=== PATIENT | female | born 2000 | race Caucasian/White ===

== ENCOUNTER 2020-01-09 13:39 | Emergency (ER) | payer OTHER, SELFPAY ==
--- NOTE | ~2020-01-09 | CT_ITS ---
EXAMINATION: CT abdomen pelvis w con DATE: 01/09/2020 14:46 INDICATION: Right lower quadrant abdominal pain TECHNIQUE: Computed tomography (CT) of the abdomen and pelvis was performed with 100 mL Omnipaque-350 intravenous contrast. Automated exposure control and iterative reconstruction technique were employe d. The dose-length product was 297.13 mGy-cm. COMPARISON: None FINDINGS: Lung bases are clear. Heart size is normal. No pericardial or pleural effusion. Liver, gallbladder, s pleen, pancreas, bilateral adrenal glands and kidneys are normal. No abnormal bowel wall thickening o r obstruction. Appendix is normal. Bladder, anteverted uterus and bilateral adnexa are unremarkable. Small amount of likely physiologic free fluid in the cul-de-sac. No free intraperitoneal gas. No path ologically enlarged abdominal or pelvic lymphadenopathy. Mild lumbar dextroscoliosis. Postoperative c hange of prior left acetabular labral repair. IMPRESSION: 1. Small amount of likely physiologic free fluid in the pelvis. No other acute intra-abdominal/pelvic process. Specifically the appendix is normal. Reviewed, dictated and finalized at location A.
--- NOTE | ~2020-01-09 | US_ITS ---
EXAMINATION: US pelvic complete w TV DATE: 01/09/2020 16:18 INDICATION: Right lower quadrant abdominal pain. TECHNIQUE: Multiple transabdominal and endovaginal sonographic images of the pelvis were obtained. COMPARISON: None. FINDINGS: The anteverted uterus measures 6.9 x 3.0 x 4.3 cm. The endometrial complex measures 3 mm in thicknes s exclusive of a small amount of fluid measuring up to 2 mm in maximal thickness within the endometri al canal at the uterine fundus. The right ovary measures 3.0 x 2.1 x 2.7 cm. The left ovary measures 2.7 x 1.3 x 2.5 cm. There are few 5 mm or smaller hypoechoic lesions in both ovaries consistent with follicles. There is normal vascular flow in the ovaries. There is a small amount of likely physiologi c free fluid in the pelvis. IMPRESSION: 1. Small amount of likely physiologic free fluid in the pelvis and minimal fluid within the endometri al canal likely related to reported recent menstrual period. Reviewed, dictated and finalized at location A. IMPRESSION: 1. Small amount of likely physiologic free fluid in the pelvis and minimal flui d within the endometrial canal likely related to reported recent menstrual mauricio od.
[2020-01-09 13:57] VITALS: BP 102/74; PULSE 83; RESP 20; TEMP 36.7; O2SAT 100
[2020-01-09] MEDS: SODIUM CHLORIDE 0.9% IV 1,000 ML 999 ML IV CONT (14:38)
[2020-01-09] MEDS: FAMOTIDINE 20 MG/2 ML VIAL IV PUSH (14:38)
[2020-01-09 14:46] LABS: Basophils Percent Auto 0.6 % (0.2-1.2); Eosinophils Absolute Auto 0.1 K/mm3 (0-0.3); Eosinophils Percent Auto 1.7 % (0-4.4); Hematocrit 39.2 % (37.0-47.0); Hemoglobin 12.9 g/dL (12.0-15.0); Immature Granulocyte Absolute 0.02 K/mm3 (0.00-0.031); Immature Granulocyte Percent A 0.3 % (0-0.5); Lymphocytes Absolute Auto 3.11 K/mm3 (0.9-3.2); Lymphocytes Percent Auto 43.4 % (18.3-44.2); Mean Corpuscular HGB Conc 32.9 g/dl (32-36); Mean Corpuscular Hemoglobin 28.4 pg (26-34); Mean Corpuscular Volume 86.2 fl (80-100); Monocytes Absolute Auto 0.4 K/mm3 (0.1-0.6); Monocytes Percent Auto 4.9 % (2.6-8.5); Neutrophils Absolute Auto 3.5 K/mm3 (1.3-6.7); Neutrophils Percent Auto 49.1 % (45.5-73.1); Platelet Count Result 298 k/mm3 (150-375); Red Blood Count 4.55 M/mm3 (4.2-5.4); Red Cell Distribution Width 13.5 % (11.5-14.5); White Blood Count 7.2 K/mm3 (4.5-10.0)
[2020-01-09 14:48] LABS: Estimated CRCL calculation 147 ml/min; Estimated Glomerular Filt Rate > 60
--- NOTE | 2020-01-09 14:54 | ED.ABDPAIN ---
HPI - Abdominal Pain General Chief Complaint: Abdominal Pain <Juan Antonio Bejarano PA-C - Last Filed: 01/09/20 17:17> Stated Complaint: RLQ pain <CAROLYN Mattson Last Filed: 01/09/20 17:17> Time Seen by Provider: 01/09/20 13:59 <Juan Antonio Bejarano PA-C - Last Filed: 01/09/20 17:17> Source: patient <CAROLYN Mattson Last Filed: 01/09/20 17:17> Mode of arrival: ambulatory <CAROLYN Mattson Last Filed: 01/09/20 17:17> Limitations: no limitations <Juan Antonio Bejarano PA-C - Last Filed: 01/09/20 17:17> History of Present Illness HPI narrative: Patient is a 19-year-old female who presents with acute onset of right sided abdominal pain that began this morning is a severe stabbing pain attempted to take Tylenol but had no improvement also had results in emesis patient denies rectal bleeding melena diarrhea. Patient on arrival in acute pain distress pain is worse with activity and movement. <Juan Antonio Bejarano PA-C - Last Filed: 01/09/20 17:17> Related Data Allergies/Adverse Reactions: Allergies Allergy/AdvReac Type Severity Reaction Status Date / Time morphine Allergy Intermediate rash Verified 01/09/20 14:01 codeine Allergy Unknown Verified 01/09/20 14:01 Penicillins Allergy Unknown Verified 01/09/20 14:01 <Juan Antonio Bejarano PA-C - Last Filed: 01/09/20 17:17> Review of Systems Review of Systems: All systems reviewed & are unremarkable except as noted in HPI and below <Juan Antonio Bejarano PA-C - Last Filed: 01/09/20 17:17> PMFSH Social History Social History: Social History (Updated 01/09/20 @ 14:55 by Juan Antonio Bejarano PA-C) Smoking status: Never smoker <CAROLYN Mattson Last Filed: 01/09/20 17:17> Exam Narrative: Exam Narrative: GENERAL: Well-appearing, uncomfortable, well-nourished, and in no acute distress. HEAD: Normocephalic, atraumatic. EYES: PERRLA and EOMI. ENT: Nares clear, no rhinorrhea or epistaxis. Mucous membranes moist. CHEST: Clear to auscultation. No respiratory distress. No wheezes rales or rhonchi HEART: Regular rate and rhythm. No murmur heard. Normal peripheral pulses. ABDOMEN: Soft, tenderness of the right abdomen with voluntary guarding, nondistended EXTREMITIES: Normal range of motion. No edema. SKIN: Warm, dry, no rash. NEURO: No focal deficits. Alert and oriented x3. PSYCH: Normal mood and affect. <CAROLYN Mattson Last Filed: 01/09/20 17:17> Course Course Emergency Course: Patient in the room at this time in no distress aware of case findings treatment plan and diagnosis will be discharged home provided with reasons to return hydrated and given pain medications in the emergency department <Juan Antonio Bejarano PA-C - Last Filed: 01/09/20 17:17> Vital Signs Vital signs: Vital Signs Temperature 98.1 F 01/09/20 13:57 Pulse Rate 83 01/09/20 13:57 Respiratory Rate 20 01/09/20 13:57 Blood Pressure 102/74 01/09/20 13:57 Pulse Oximetry 100 01/09/20 13:57 Temperature 98.1 F 01/09/20 13:57 Pulse Rate 83 01/09/20 13:57 Respiratory Rate 20 01/09/20 13:57 Blood Pressure 102/74 01/09/20 13:57 Pulse Oximetry 100 01/09/20 13:57 <CAROLYN Mattson Last Filed: 01/09/20 17:17> Vital Signs Temperature 98.1 F 01/09/20 13:57 Pulse Rate 83 01/09/20 13:57 Respiratory Rate 20 01/09/20 13:57 Blood Pressure 102/74 01/09/20 13:57 Pulse Oximetry 100 01/09/20 13:57 Temperature 98.1 F 01/09/20 13:57 Pulse Rate 83 01/09/20 13:57 Respiratory Rate 20 01/09/20 13:57 Blood Pressure 102/74 01/09/20 13:57 Pulse Oximetry 100 01/09/20 13:57 <Sandrine Miller MD - Last Filed: 01/09/20 18:14> MDM - Abdominal Pain MDM Narrative Medical decision making narrative: Patient and family present in the room in no distress patient resting comfortably aware of case findings treatment plan and diagnosis uncertain to the etiology o
[2020-01-09 14:55] LABS: Add Urine Microscopic? YES; Appearance Urine Cloudy (Clear); Bacteria Urine Trace /hpf; Bilirubin Urine Negative (Negative); Blood Urine Negative (Negative); Color Urine Yellow (Yellow); Glucose Urine UA Negative (Negative); Ketones Urine Negative (Negative); Leukocyte Esterase Ur Trace LEU/UL (Negative); Mucus Urine Rare /lpf; Nitrate Urine Negative (Negative); Protein Urine Negative (Negative); Specific Grav Ur 1.016 (1.001-1.035); Squamous Epithelial Cell Urine Many /hpf (Few); Urobilinogen Urine Negative mg/dL (<2.0)
[2020-01-09 15:03] LABS: Alanine Aminotransferase 17 U/L (4-35); Albumin Level 4.2 g/dL (3.7-5.6); Alkaline Phosphatase 61 U/L (45-116); Anion Gap 13.1 mmol/L (7-16); Aspartate Amino Transferase 22 U/L (14-36); Bilirubin,Total 0.2 mg/dL (0.2-1.3); Blood Urea Nitrogen 9 mg/dL (8-21); Calcium 8.9 mg/dL (8.9-10.7); Carbon Dioxide 24 mmol/L (22-30); Chloride 104 mmol/L (98-107); Estimated CRCL calculation 147 ml/min; Estimated Glomerular Filt Rate > 60; Glucose 93 mg/dL (65-105); Lipase 95 U/L (23-300); Potassium 4.1 mmol/L (3.4-5.0); Sodium 137 mmol/L (134-143)
[2020-01-09] MEDS: IBUPROFEN IV 800 MG/200 ML 800 MG/200 ML BAG 400 MG IVPB (15:27)
== END 2020-01-09 17:35 | disposition home or self-care (01) ==
PROVIDERS: Emergency Medicine Emergency Medical Services; Emergency Provider General Practice
DX: R10.9 Unspecified abdominal pain (principal)
CPT/HCPCS: 36415; 74177; 76830; 76856; 80053; 81001; 81025; 83690; 85025; 96365; 96375; 99284; J0131; J1741; J7030; Q9967